=== PATIENT | female | born 1975 | race African-American/Black ===

== ENCOUNTER 2017-04-30 07:17 | Inpatient (IN) ==
[2017-04-27 11:11] LABS: Apearance,Urine CLEAR (Clear); Bacteria,Urine Occasional /HPF (Few); Basophils % 0.4 % (0.0-0.8); Bilirubin,Urine Negative (Negative); Blood, Urine Negative (Negative); Eosinophils # 0.1 10*3/uL (0.0-0.87); Eosinophils % 2.5 % (0.00-10.9); Glucose,Urine (UA) Negative (Negative); Hematocrit 33.5 VOL% (35.7-47.0); Hemoglobin 10.4 GM/DL (12.0-16.0); Immature Granulocytes % 0.2 %; Immature Granulocytes Absolute 0.01 #; Ketones,Urine Negative (Negative); Lymphocytes # 1.6 10*3/uL (1.4-4.0); Lymphocytes % 32.7 % (21.3-54.2); Mean Corpuscular Hemoglobin 24 PG (27-34); Mean Corpuscular Volume 76.8 FL (87-102); Mean Platelet Volume 10.2 FL (9.6-12.0); Monocytes # 0.3 10*3/uL (0.11-0.8); Monocytes % 5.8 % (1.7-12.7); Mucus,Urine Occasional /LPF (Occasional); Neutrophils # 2.8 10*3/uL (1.4-7.4); Neutrophils % 58.4 % (38.7-73.9); Nitrite,Urine Negative (Negative); Platelet Count 303 T/CUMM (130-400); Protein,Urine Negative; RBC,Urine 1 /HPF (0-4); Red Blood Count 4.36 MC/CUMM (3.8-5.5); Squamous Epithelial Cell,Urine Occasional /HPF (0-10); Urine Color Yellow (Yellow); Urine Specific Gravity 1.011 (1.001-1.035); Urine Urobilinogen < 2.0 EU/DL (0.2-1.0); WBC,Urine <1 /HPF (0-6); White Blood Count 4.9 T/CUMM (4-12)
[2017-04-27 11:43] LABS: Alanine Aminotransferase 16 U/L (13-56); Albumin 3.7 G/DL (3.4-5.0); Alkaline Phosphatase 81 U/L (45-117); Aspartate Amino Transferase 11 U/L (0-37); Bilirubin,Total < 0.39 MG/DL (0.2-1.0); Blood Urea Nitrogen 8 MG/DL (7-18); Calcium 8.6 MG/DL (8.5-10.1); Cholesterol 169 MG/DL (50-200); Glucose 81 MG/DL (74-106); HDL Cholesterol 48 MG/DL (40-60); Osmolality,Calculated 273.5 MOS/KG (273-304); Potassium 4.4 MMOL/L (3.5-5.1); Risk Ratio 3.52; Sodium 139 MMOL/L (136-145); Total Protein 7.2 G/DL (6.4-8.3); Triglycerides 129 MG/DL (2-150); VLDL CHOLESTEROL 25.8 MG/DL
[2017-04-27 13:37] LABS: HIV Antigen/Antibody Result Nonreactive (Nonreactive)
[~2017-04-30 07:17] MED LIST: AMPICILLIN/SULBACTAM 3,000 MG in SODIUM CHLORIDE 0.9% 100 ML IV ONE
[2017-04-30] MEDS ORDERED: FAMOTIDINE 20 MG TABLET PO ONE (08:05)
[2017-04-30] MEDS ORDERED: DIAZEPAM 5 MG TABLET PO ONE (08:05)
[2017-04-30] MEDS ORDERED: ALBUTEROL 2.5 MG/3 ML NEB RESP TX ONE (08:05)
[2017-04-30] MEDS ORDERED: DIAZEPAM 5 MG TABLET ONE (09:01)
[2017-04-30] MEDS ORDERED: FAMOTIDINE 20 MG TABLET ONE (09:02)
[2017-04-30] MEDS: LACTATED RINGERS 1,000 ML IV SCH ×5 (09:10→23:18)
[2017-04-30] MEDS ORDERED: SCOPOLAMINE 1.5 MG PATCH TRANSDERM ONE (09:48)
[2017-04-30] MEDS ORDERED: PROPOFOL 200 MG/20 ML VIAL IV ONE (12:15)
[2017-04-30] MEDS ORDERED: DEXAMETHASONE 10 MG/1 ML VIAL ONE (12:16)
[2017-04-30] MEDS ORDERED: fentaNYL 100 MCG/2 ML VIAL ONE (12:16)
[2017-04-30] MEDS ORDERED: SEVOFLURANE 1 UNIT/15 MINUTE INH ONE (12:16)
[2017-04-30] MEDS ORDERED: KETOROLAC 30 MG/1 ML VIAL ONE (12:16)
[2017-04-30] MEDS ORDERED: ONDANSETRON 4 MG/2 ML VIAL ONE (12:16)
[2017-04-30] MEDS ORDERED: MIDAZOLAM 2 MG/2 ML VIAL ONE (12:16)
[2017-04-30] MEDS ORDERED: ROCURONIUM 100 MG/10 ML VIAL IV ONE (12:17)
[2017-04-30] MEDS ORDERED: NEOSTIGMINE 10 MG/10 ML VIAL ONE (12:17)
[2017-04-30] MEDS ORDERED: GLYCOPYRROLATE 0.4 MG/2 ML VIAL ONE (12:17)
[2017-04-30] MEDS ORDERED: LACTATED RINGERS 2,000 ML IV ONE (12:17)
[2017-04-30] MEDS ORDERED: ACETAMINOPHEN 1,000 MG/100 ML VIAL IV ONE (12:17)
[2017-04-30] MEDS ORDERED: PROMETHAZINE INJ 12.5 MG in SODIUM CHLORIDE 0.9% 50 ML IV ONE ×2 (12:20→13:00)
[2017-04-30] MEDS ORDERED: PROMETHAZINE 25 MG/1 ML VIAL ONE (12:21)
[2017-04-30 12:22] LABS: Apearance,Urine CLEAR (Clear); Bilirubin,Urine Negative (Negative); Blood, Urine Small mg/dL (Negative); Glucose,Urine (UA) Negative (Negative); Ketones,Urine Negative (Negative); Mucus,Urine Occasional /LPF (Occasional); Nitrite,Urine Negative (Negative); Protein,Urine Negative; RBC,Urine 1 /HPF (0-4); Squamous Epithelial Cell,Urine Occasional /HPF (0-10); Urine Color Yellow (Yellow); Urine Urobilinogen < 2.0 EU/DL (0.2-1.0)
[2017-04-30 12:30] LABS: Hematocrit 26.5 VOL% (35.7-47.0); Hemoglobin 8.5 GM/DL (12.0-16.0)
[2017-04-30] MEDS ORDERED: BISACODYL 10 MG SUPP RECTAL PRN (14:05)
[2017-04-30] MEDS ORDERED: BENZOCAINE/MENTHOL LOZENGE 18/BOX PO PRN (14:05)
[2017-04-30] MEDS ORDERED: ACETAMINOPHEN 325 MG TABLET PO PRN (14:05)
[2017-04-30] MEDS: HYDROmorphone 2 MG/1 ML VIAL IV PRN ×2 (14:58→17:25)
[2017-04-30] MEDS: ceFAZolin 1,000 MG in SYRINGE 1 EACH IV SCH (18:47)
[2017-05-01] MEDS: ceFAZolin 1,000 MG in SYRINGE 1 EACH IV SCH (03:09)
[2017-05-01 05:06] LABS: Basophils % 0.1 % (0.0-0.8); Hematocrit 23.7 VOL% (35.7-47.0); Hemoglobin 7.5 GM/DL (12.0-16.0); Immature Granulocytes % 0.4 %; Immature Granulocytes Absolute 0.05 #; Lymphocytes # 1.1 10*3/uL (1.4-4.0); Lymphocytes % 9.7 % (21.3-54.2); Mean Corpuscular HGB Conc 31.6 GM/DL (32-36); Mean Corpuscular Hemoglobin 24 PG (27-34); Mean Corpuscular Volume 76.2 FL (87-102); Mean Platelet Volume 10.2 FL (9.6-12.0); Monocytes # 0.9 10*3/uL (0.11-0.8); Monocytes % 7.5 % (1.7-12.7); Neutrophils # 9.5 10*3/uL (1.4-7.4); Neutrophils % 82.3 % (38.7-73.9); Platelet Count 257 T/CUMM (130-400); Red Blood Count 3.11 MC/CUMM (3.8-5.5); Red Cell Distribution Width 18.2 % (9.3-17.3); White Blood Count 11.6 T/CUMM (4-12)
[2017-05-01] MEDS: HYDROmorphone 2 MG/1 ML VIAL IV PRN (08:38)
[2017-05-01] MEDS: ONDANSETRON 4 MG/2 ML VIAL IV PRN ×2 (08:42→13:38)
[2017-05-01] MEDS ORDERED: SODIUM CHLORIDE 0.9% 1,000 ML IV PRN (12:14)
[2017-05-01] MEDS: MAGNESIUM HYDROXIDE SUSP 30 ML UDCUP PO PRN (20:53)
[2017-05-01] MEDS: DOCUSATE SODIUM 100 MG CAPSULE PO PRN (20:53)
[2017-05-01] MEDS: LACTATED RINGERS 1,000 ML IV SCH (23:59)
[2017-05-02] MEDS: LACTATED RINGERS 1,000 ML IV SCH
[2017-05-02] MEDS: ceFAZolin 1,000 MG in SYRINGE 1 EACH IV SCH
[2017-05-02 06:03] LABS: Basophils % 0.4 % (0.0-0.8); Eosinophils # 0.2 10*3/uL (0.0-0.87); Eosinophils % 2.1 % (0.00-10.9); Immature Granulocytes % 0.3 %; Immature Granulocytes Absolute 0.02 #; Lymphocytes # 1.5 10*3/uL (1.4-4.0); Lymphocytes % 19.9 % (21.3-54.2); Mean Corpuscular HGB Conc 32.5 GM/DL (32-36); Mean Corpuscular Hemoglobin 26 PG (27-34); Mean Corpuscular Volume 79.3 FL (87-102); Mean Platelet Volume 10.3 FL (9.6-12.0); Monocytes # 0.5 10*3/uL (0.11-0.8); Monocytes % 6.8 % (1.7-12.7); Neutrophils # 5.4 10*3/uL (1.4-7.4); Neutrophils % 70.5 % (38.7-73.9); Platelet Count 248 T/CUMM (130-400); Red Blood Count 3.53 MC/CUMM (3.8-5.5); Red Cell Distribution Width 17.5 % (9.3-17.3); White Blood Count 7.6 T/CUMM (4-12)
[2017-05-02 06:12] LABS: Hemoglobin 9.1 GM/DL (12.0-16.0)
[2017-05-02] MEDS ORDERED: METOCLOPRAMIDE 10 MG/2 ML VIAL IM SCH (12:00)
[2017-05-02] MEDS: MAGNESIUM HYDROXIDE SUSP 30 ML UDCUP PO PRN ×2 (12:36→21:57)
[2017-05-02] MEDS ORDERED: METOCLOPRAMIDE 10 MG/2 ML VIAL IV ONE (12:38)
[2017-05-02] MEDS: IBUPROFEN 800 MG TABLET PO PRN (16:38)
[2017-05-02] MEDS: METOCLOPRAMIDE 10 MG/2 ML VIAL IV SCH (18:26)
[2017-05-02] MEDS: SIMETHICONE CHEW 80 MG TABLET PO PRN (21:57)
[2017-05-02] MEDS: DOCUSATE SODIUM 100 MG CAPSULE PO PRN (21:57)
[2017-05-03] MEDS: METOCLOPRAMIDE 10 MG/2 ML VIAL IV SCH ×2 (06:15)
[2017-05-03 07:27] VITALS: BP 149/84
[2017-05-03] MEDS: SIMETHICONE CHEW 80 MG TABLET PO PRN (09:53)
[2017-05-03] MEDS: IBUPROFEN 800 MG TABLET PO PRN (09:54)
[2017-05-03] MEDS ORDERED: INFLUENZA VIRUS VACCINE 0.5 ML SYRINGE IM ONE (11:14)
== END 2017-05-03 11:30 | disposition home or self-care (01) | DRG 743 ==
LOC: N.OR 07:17 → N.SDSINP 07:18 → N.OB 14:04
PROVIDERS: ADMIT Obstetrics & Gynecology; ATTEND Obstetrics & Gynecology